=== PATIENT | male | born 1970 | race Caucasian/White ===

== ENCOUNTER 2018-12-22 14:03 | Inpatient (IN) | payer OTHER ==
[~2018-12-22] VITALS: Ht 172.7 cm; Wt 78.3 kg
[2018-12-22 15:30] VITALS: BP 129/87
[2018-12-22 16:58] VITALS: BP 129/87
[2018-12-22 17:04] LABS: HEMATOCRIT 37.7 % (42.0-52.0); HEMOGLOBIN 12.5 g/dl (14.0-18.0); MEAN CORPUSCULAR HGB 29.8 pg (27.0-31.0); MEAN CORPUSCULAR HGB CONC 33.2 g/dl (33.0-37.0); MEAN PLATELET VOLUME 12.1 fl (9.6-12.3); PLATELET COUNT AUTOMATED 91 10*3/uL (130-400); RED BLOOD COUNT 4.19 10*6/uL (4.50-5.90); RED CELL DISTRI WIDTH 18.6 % (0-14.5); WHITE BLOOD COUNT 2.6 10*3/uL (4.8-10.8)
[2018-12-22 17:23] LABS: ALBUMIN 3.7 gm/dl (3.1-4.5); ALKALINE PHOSPHATASE 115 U/L (45-117); BUN 5 mg/dl (7-24); CHLORIDE 105 mmol/L (98-107); CREATININE 0.82 mg/dL (0.70-1.30); LIPASE 220 U/L (73-393); POTASSIUM 3.6 mmol/L (3.5-5.1); SGOT/AST 185 IU/L (3-35); SGPT/ALT 76 U/L (12-78); SODIUM 139 mmol/L (136-145); TOTAL PROTEIN 7.4 gm/dL (6.4-8.2)
[2018-12-22 17:27] LABS: BASOPHILS 1 % (0-1); PLATELET SUFFICIENCY LOW (NORMAL); TOTAL CELLS COUNTED 100 #CELLS
[2018-12-22] MEDS ORDERED: BUSPAR15 MG PO (18:18)
[2018-12-22] MEDS ORDERED: FLUOXETINE HYDR20 M1 PO (18:19)
[2018-12-22] MEDS ORDERED: QUETIAPINE FUMA50 M1 PO (18:19)
[2018-12-22] MEDS ORDERED: MULTIVITAMINS1 EAC6 PO (18:20)
[2018-12-22] MEDS ORDERED: B-121000 MCG PO (18:28)
[2018-12-22] MEDS ORDERED: VITAMIN D31000 UNI1 PO (18:29)
[2018-12-22] MEDS ORDERED: OMEPRAZOLE20 M2 PO (18:31)
[2018-12-22] MEDS ORDERED: MAGOX 400400 MG PO (18:32)
[2018-12-22 20:00] VITALS: BP 120/83
[2018-12-23] VITALS: BP 98/72
[2018-12-23 08:00] VITALS: BP 108/72; BP 122/87
[2018-12-23 09:38] LABS: BILIRUBIN NEGATIVE (NEGATIVE); BLOOD NEGATIVE (NEGATIVE); CLARITY CLEAR (CLEAR); COLOR YELLOW (YELLOW); GLUCOSE NEGATIVE (NEGATIVE); KETONE NEGATIVE (NEGATIVE); LEUKO ESTERASE NEGATIVE (NEGATIVE); NITRITE NEGATIVE (NEGATIVE); PH 5.5 (5.0-9.0); UROBILINOGEN 0.2 E.U./dl (0.2-1.0)
[2018-12-23 09:46] LABS: URINE AMPHETAMINES < 1000 (1000ng/ml); URINE BARBITURATES < 200 (200ng/ml); URINE BENZODIAZEPINES > 200 (200ng/ml); URINE CANNABINOIDS (THC) < 50 (50ng/ml); URINE COCAINE < 300 (300ng/ml); URINE METHADONE < 300 (300ng/ml); URINE OPIATES < 300 (300ng/ml)
[2018-12-23 10:00] LABS: URINE PHENCYCLIDINE < 25 (25ng/ml)
[2018-12-23 10:15] LABS: MUCOUS 1+
[2018-12-23 12:00] VITALS: BP 124/85
[2018-12-23 16:00] VITALS: BP 149/81
[2018-12-23 20:00] VITALS: BP 129/84
[2018-12-24] VITALS: BP 116/83
[2018-12-24 08:00] VITALS: BP 116/78
[2018-12-24 12:00] VITALS: BP 124/85
[2018-12-24 16:00] VITALS: BP 122/79; BP 155/71
[2018-12-24 20:00] VITALS: BP 114/85
[2018-12-25] VITALS: BP 92/56
[2018-12-25 06:21] LABS: BASO % 0.4 % (0.0-1.0); EOS # 0.1 10*3/uL (0.0-0.4); EOS % 1.8 % (1.0-4.0); HEMATOCRIT 36.3 % (42.0-52.0); HEMOGLOBIN 11.6 g/dl (14.0-18.0); LYMPH # 0.9 10*3/uL (1.3-4.4); MEAN CELL VOLUME 92.6 fl (80.0-94.0); MEAN CORPUSCULAR HGB 29.6 pg (27.0-31.0); MEAN PLATELET VOLUME 11.9 fl (9.6-12.3); MONO # 0.4 10*3/uL (0.1-1.0); MONO % 16.2 % (3.0-9.0); NEUT # 1.4 10*3/uL (2.3-7.9); NEUT % 49.6 % (47.0-73.0); PLATELET COUNT AUTOMATED 63 10*3/uL (130-400); RED BLOOD COUNT 3.92 10*6/uL (4.50-5.90); RED CELL DISTRI WIDTH 18.2 % (0-14.5); WHITE BLOOD COUNT 2.7 10*3/uL (4.8-10.8)
[2018-12-25 06:39] LABS: CREATININE 0.88 mg/dL (0.70-1.30)
[2018-12-25] MEDS ORDERED: METHOCARBAMOL750 M1 PO (08:13)
[2018-12-25] MEDS ORDERED: DICYCLOMINE HCL20 MG PO (08:13)
[2018-12-25] MEDS ORDERED: MOTRIN 600 MG E4 TAB PO (08:13)
== END 2018-12-25 12:00 | disposition home or self-care (01) | DRG 897 ==
LOC: 5E 14:03
PROVIDERS: Registered Nurse; ADMIT Family Medicine
DX: F10.129 Alcohol abuse with intoxication, unspecified (principal); D61.818 Other pancytopenia; K21.9 Gastro-esophageal reflux disease without esophagitis; F31.9 Bipolar disorder, unspecified; R74.0 Nonspecific elevation of levels of transaminase and lactic acid dehydrogenase [LDH]; I95.89 Other hypotension; F41.1 Generalized anxiety disorder; E66.3 Overweight; D75.89 Other specified diseases of blood and blood-forming organs